=== PATIENT | female | born 1970 | race Two or more races ===

== ENCOUNTER 2016-05-30 16:35 | Emergency (ER) | payer OTHER ==
[~2016-05-30] VITALS: Ht 170.2 cm; Wt 77.1 kg
[~2016-05-30 16:35] MED LIST: ALBU18HF2 IH; ALBU8.5H2 IH; MOME13HF2 HHN
[2016-05-30] MEDS ORDERED: ALBUTEROL FS 2.5 MG/3 ML VIAL.NEB NEB ONE (17:00)
[2016-05-30] MEDS ORDERED: predniSONE 20 MG TABLET PO ONE (17:00)
[2016-05-30] MEDS ORDERED: IPRATROPIUM NEB FS 0.5 MG/2.5 ML AMPUL.NEB NEB ONE (17:00)
[2016-05-30] MEDS ORDERED: predniSONE 20 MG TABLET ONE (17:08)
[2016-05-30 17:19] LABS: BASOPHILS % (AUTO) 0.5 % (0.0-2.0); DIFF TOTAL % 100 %; EOSINOPHILS # (AUTO) 0.5 /CMM (0.0-0.7); EOSINOPHILS % (AUTO) 5.7 % (0.0-6.0); HEMATOCRIT 42 % (33-45); HEMOGLOBIN 14.4 g/dL (11.5-14.8); MEAN CORPUSCULAR HEMOGLOBIN 30 PG (26.0-33.0); MEAN CORPUSCULAR HGB CONC 35 g/dl (31.0-36.0); MEAN CORPUSCULAR VOLUME 88 fL (82-100); MONOCYTES # (AUTO) 0.6 /CMM (0.1-1.30); MONOCYTES % (AUTO) 6.6 % (2.0-12.0); NEUTROPHILS # (AUTO) 5.5 /CMM (1.8-8.9); NEUTROPHILS % (AUTO) 64.2 % (43.0-81.0); PLATELET COUNT (AUTO) 186 /CMM (150-450); RED BLOOD CELL COUNT(AUTO) 4.75 MIL/uL (4.0-5.2); WHITE BLOOD COUNT (AUTO) 8.6 K/uL (4.3-11.0)
[2016-05-30 17:32] LABS: CALCIUM, SERUM 8.7 mg/dL (8.5-10.1); CREATININE 0.6 mg/dL (0.6-1.3); POTASSIUM 3.9 mmol/L (3.5-5.1)
[2016-05-30] MEDS ORDERED: ALBUTEROL FS 2.5 MG/3 ML VIAL.NEB ONE (17:48)
[2016-05-30] MEDS ORDERED: IPRATROPIUM NEB FS 0.5 MG/2.5 ML AMPUL.NEB ONE (17:48)
[2016-05-30 18:06] LABS: INR 0.96 (0.87-1.13); PROTHROMBIN TIME 10.1 SECS (9.5-12.7)
[2016-05-30] MEDS ORDERED: IOHEXOL-350 100 ML VIAL IV ONE (18:32)
[2016-05-30] MEDS ORDERED: CT SWABBABLE VALVE TRANS SET 1 EA INFUS.SET MC ONE (18:32)
[2016-05-30] MEDS ORDERED: IV NS 0.9% 250 ML IV ONE (18:32)
[2016-05-30 19:56] VITALS: BP 110/74
== END 2016-05-30 19:56 | disposition home or self-care (01) ==
LOC: ER 16:36
DX: J20.9 Acute bronchitis, unspecified (principal); R91.8 Other nonspecific abnormal finding of lung field; J45.909 Unspecified asthma, uncomplicated; F17.200 Nicotine dependence, unspecified, uncomplicated; R79.1 Abnormal coagulation profile
CPT/HCPCS: 36415; 71010-TC; 80048-TC; 84703-TC; 85025-TC; 85730-TC; 93971-TC; A4606; J7050; Q9967; Z7610

== ENCOUNTER 2016-07-02 19:17 | Emergency (ER) | payer OTHER ==
[~2016-07-02] VITALS: Ht 167.6 cm; Wt 77.1 kg
[2016-07-02] MEDS ORDERED: predniSONE 20 MG TABLET ONE (20:12)
[2016-07-02] MEDS ORDERED: IPRATROPIUM NEB FS 0.5 MG/2.5 ML AMPUL.NEB ONE (20:20)
[2016-07-02] MEDS ORDERED: ALBUTEROL FS 2.5 MG/3 ML VIAL.NEB ONE (20:20)
[2016-07-02] MEDS ORDERED: predniSONE 20 MG TABLET PO ONE (20:30)
[2016-07-02] MEDS ORDERED: IPRATROPIUM NEB FS 0.5 MG/2.5 ML AMPUL.NEB NEB ONE (20:30)
[2016-07-02] MEDS ORDERED: ALBUTEROL FS 2.5 MG/3 ML VIAL.NEB NEB ONE (20:30)
[2016-07-02 21:17] VITALS: BP 101/61
== END 2016-07-02 21:19 | disposition home or self-care (01) ==
LOC: ER 19:19
DX: J45.901 Unspecified asthma with (acute) exacerbation (principal); Z87.891 Personal history of nicotine dependence
CPT/HCPCS: 94640; 99291; A4606; J7512; Z7610

== ENCOUNTER 2016-11-05 13:51 | Emergency (ER) | payer OTHER ==
[~2016-11-05] VITALS: Ht 172.7 cm; Wt 79.4 kg
--- NOTE | 2016-11-05 13:51 | NUR ---
BIB SELF, CC: ASTHMA EXACERBATION SINCE THIS MORNING, STATES SHE RAN OUT OF HER INHALER. NAD NOTD. PT AAO X4, AMB WITH STEADY GAIT. VSS. PENDING MD GAINES.
[2016-11-05] MEDS ORDERED: predniSONE 20 MG TABLET ONE (14:09)
[2016-11-05] MEDS ORDERED: ALBUTEROL FS 2.5 MG/3 ML VIAL.NEB ONE (14:10)
[2016-11-05] MEDS ORDERED: IPRATROPIUM NEB FS 0.5 MG/2.5 ML AMPUL.NEB ONE (14:10)
--- NOTE | 2016-11-05 14:15 | NUR ---
MEDICATIONS GIVEN ORDERED. RT AT BEDSIDE FOR TX
[2016-11-05] MEDS ORDERED: IPRATROPIUM NEB FS 0.5 MG/2.5 ML AMPUL.NEB NEB ONE (14:30)
[2016-11-05] MEDS ORDERED: ALBUTEROL FS 2.5 MG/3 ML VIAL.NEB NEB ONE (14:30)
[2016-11-05] MEDS ORDERED: predniSONE 20 MG TABLET PO ONE (14:30)
[2016-11-05] MEDS ORDERED: ALBUTEROL FS 2.5 MG/3 ML VIAL.NEB CONTNEB ONE (14:30)
[2016-11-05 15:14] VITALS: BP 111/66
== END 2016-11-05 15:18 | disposition home or self-care (01) ==
LOC: ER 13:52
DX: J45.901 Unspecified asthma with (acute) exacerbation (principal); F17.200 Nicotine dependence, unspecified, uncomplicated
CPT/HCPCS: 94644; 99285; A4606; J7512; Z7610

== ENCOUNTER 2019-04-30 20:24 | Emergency (ER) | payer MEDICAID, OTHER ==
[~2019-04-30] VITALS: Ht 170.2 cm; Wt 79.4 kg
[~2019-04-30 20:24] MED LIST changes: -ALBU8.5H2 IH; +ALBU8.5H8 IH
--- NOTE | 2019-04-30 20:39 | NUR ---
PT PRESENTED TO THE ER WITH A C/O LEFT SIDED CP THAT RADIATES DOWN THE LT ARM AND TO THE LT UPPER BACK. PT DESCRIBED THE PAIN SHARP AND INTERMITTENT. ONSET AT 0500 TODAY. PT AMBULATED TO ER 1 AND WAS PLACED ON THE MONITOR AND CONTINUOUS PULSE OX. PT IS ST @ 102.
[2019-04-30] MEDS ORDERED: ACETAMINOPHEN 325 MG TABLET PO ONE (21:00)
[2019-04-30] MEDS ORDERED: ACETAMINOPHEN ES 500 MG TABLET ONE (21:03)
[2019-04-30 21:05] LABS: BASOPHILS # (AUTO) 0.1 /CMM (0.0-0.2); BASOPHILS % (AUTO) 0.8 % (0.0-2.0); EOSINOPHILS % (AUTO) 2.2 % (0.0-6.0); HEMATOCRIT 44 % (33-45); HEMOGLOBIN 14.7 g/dL (11.5-14.8); LYMPHOCYTES # (AUTO) 2.1 /CMM (0.8-4.8); LYMPHOCYTES % (AUTO) 25.4 % (20.0-44.0); MEAN CORPUSCULAR HGB CONC 34 g/dl (31.0-36.0); MEAN CORPUSCULAR VOLUME 90 fL (82-100); MONOCYTES # (AUTO) 0.5 /CMM (0.1-1.30); MONOCYTES % (AUTO) 5.6 % (2.0-12.0); NEUTROPHILS # (AUTO) 5.5 /CMM (1.8-8.9); PLATELET COUNT (AUTO) 266 /CMM (150-450); RED BLOOD CELL COUNT(AUTO) 4.86 MIL/uL (4.0-5.2); WHITE BLOOD COUNT (AUTO) 8.3 K/uL (4.3-11.0)
--- NOTE | 2019-04-30 21:09 | NUR ---
PT AMBULATED TO THE BATHROOM WITH A STEADY GAIT.
--- NOTE | 2019-04-30 21:15 | NUR ---
PT AMBULATED BACK TO ER 1 WITH A STEADY GAIT.
[2019-04-30 21:19] LABS: ALANINE AMINOTRANSFERASE 105 U/L (12-78); ALBUMIN 3.7 g/dL (3.4-5.0); ALKALINE PHOSPHATASE 83 U/L (46-116); ASPARTATE AMINOTRANSFERASE 49 U/L (15-37); BILIRUBIN,DIRECT 0.1 mg/dL (0.0-0.2); BILIRUBIN,TOTAL 0.4 mg/dL (0.2-1.0); CALCIUM, SERUM 9.4 mg/dL (8.5-10.1); CARBON DIOXIDE 31 mmol/L (21-32); CHLORIDE 103 mmol/L (98-107); CREATININE 0.8 mg/dL (0.6-1.3); GLUCOSE 114 mg/dL (74-106); POTASSIUM 3.9 mmol/L (3.5-5.1); SODIUM SERUM 139 mmol/L (136-145); TOTAL PROTEIN, SERUM 7.6 g/dL (6.4-8.2); UREA NITROGEN, BLOOD 14 mg/dL (7-18)
--- NOTE | 2019-04-30 21:20 | NUR ---
URINE SAMPLE OBTAINED AND SENT TO LAB.
[2019-04-30 21:24] LABS: BILIRUBIN,URINE Negative (NEGATIVE); BLOOD, URINE Small Ery/uL (NEGATIVE); COLOR,URINE Yellow (YELLOW); KETONES,URINE Negative (NEGATIVE); LEUKOCYTE ESTERASE ,URINE Moderate (NEGATIVE); NITRITE, URINE Negative (NEGATIVE); PROTEIN,URINE Negative (NEGATIVE); UGLUCOSE Negative (NEGATIVE); UROBILINOGEN,URINE 0.2 EU/dL (0.2)
--- NOTE | 2019-04-30 21:25 | NUR ---
XRAY IN PROGRESS AT THE BEDSIDE.
[2019-04-30 21:27] LABS: APPEARANCE,URINE HAZY (CLEAR)
--- NOTE | 2019-04-30 21:28 | NUR ---
PT IS C/O FEELING SOB WITH INTERMITTENT LT SIDED SHARP, STABBING CHEST PAIN.
[2019-04-30 21:37] LABS: BACTERIA,URINE Many /HPF (None Seen); SQUAMOUS EPITHELIAL CELL,UR Moderate /HPF (None Seen)
--- NOTE | 2019-04-30 22:15 | NUR ---
Dylon MOODY PA-C IS AT THE BEDSIDE SPEAKING TO THE PT.
--- NOTE | 2019-04-30 23:25 | NUR ---
PT APPEARS TO BE RESTING COMFORTABLY WITH NO S/S OF PAIN OR DISTRESS. VSS.
--- NOTE | 2019-05-01 01:00 | NUR ---
Patient discharged to home in stable condition. Written and verbal after care instructions given. Patient verbalizes understanding of instruction AND RX. IV removed. Catheter intact and site benign. Pressure and 4x4 applied to site. No bleeding noted. PT AMBULATED OUT WITH A STEADY GAIT. VSS
[2019-05-01 01:40] VITALS: BP 130/78
== END 2019-05-01 00:57 | disposition home or self-care (01) ==
LOC: ER 20:28
DX: N39.0 Urinary tract infection, site not specified (principal); R07.89 Other chest pain; J45.909 Unspecified asthma, uncomplicated; F17.200 Nicotine dependence, unspecified, uncomplicated; F41.9 Anxiety disorder, unspecified; Z79.899 Other long term (current) drug therapy
CPT/HCPCS: 36415; 71045-TC; 80048-TC; 80076-TC; 81000-TC; 83690-TC; 84484-TC; 84703-TC; 85025-TC; 85378-TC; 87086-TC

== ENCOUNTER 2020-04-01 23:55 | Emergency (ER) | payer MEDICAID ==
[~2020-04-01] VITALS: Ht 170.2 cm; Wt 79.4 kg
--- NOTE | 2020-04-02 00:25 | NUR ---
PT CAME TO THE ER C/O SORE THROAT AND MIGRAINE X6 DAYS. PT ALSO ENDORSES NON RADIATIONG L SIDED CP X8 HRS. -SOB. PT CONNECTED TO THE POLE CLASSIFIER AND POX
--- NOTE | 2020-04-02 00:29 | NUR ---
OBSTETRICIAN AND GYNAECOLOGIST AT BEDSIDE FOR BLOOD DRAW
[2020-04-02] MEDS ORDERED: KETOROLAC TROMETHAMINE INJ 60 MG/2 ML VIAL IM ONE ×2 (00:30→00:34)
--- NOTE | 2020-04-02 00:30 | NUR ---
WAIVER OBTAINED FROM PT
[2020-04-02 00:38] LABS: BASOPHILS % (AUTO) 0.6 % (0.0-2.0); EOSINOPHILS % (AUTO) 3.3 % (0.0-6.0); HEMATOCRIT 45 % (33-45); LYMPHOCYTES # (AUTO) 2.4 /CMM (0.8-4.8); MEAN CORPUSCULAR HGB CONC 34 g/dl (31.0-36.0); MEAN CORPUSCULAR VOLUME 92 fL (82-100); MONOCYTES # (AUTO) 0.4 /CMM (0.1-1.30); MONOCYTES % (AUTO) 6.7 % (2.0-12.0); NEUTROPHILS # (AUTO) 3.3 /CMM (1.8-8.9); NEUTROPHILS % (AUTO) 51.4 % (43.0-81.0); PLATELET COUNT (AUTO) 267 /CMM (150-450); RED BLOOD CELL COUNT(AUTO) 4.87 MIL/uL (4.0-5.2); WHITE BLOOD COUNT (AUTO) 6.4 K/uL (4.3-11.0)
--- NOTE | 2020-04-02 00:40 | NUR ---
XRAY AT BEDSIDE
--- NOTE | 2020-04-02 00:40 | NUR ---
STREP SWAB SENT TO LAB
[2020-04-02 00:49] LABS: CALCIUM, SERUM 8.9 mg/dL (8.5-10.1); CARBON DIOXIDE 29 mmol/L (21-32); CHLORIDE 104 mmol/L (98-107); CREATININE 0.7 mg/dL (0.6-1.3); GLUCOSE 108 mg/dL (74-106); POTASSIUM 3.7 mmol/L (3.5-5.1); SODIUM SERUM 139 mmol/L (136-145); UREA NITROGEN, BLOOD 14 mg/dL (7-18)
[2020-04-02 00:55] LABS: ALANINE AMINOTRANSFERASE 40 U/L (12-78); ALBUMIN 3.7 g/dL (3.4-5.0); ALKALINE PHOSPHATASE 80 U/L (46-116); ASPARTATE AMINOTRANSFERASE 20 U/L (15-37); BILIRUBIN,DIRECT 0.1 mg/dL (0.0-0.2); BILIRUBIN,TOTAL 0.2 mg/dL (0.2-1.0); TOTAL PROTEIN, SERUM 7.8 g/dL (6.4-8.2)
[2020-04-02 01:25] LABS: D-DIMER 0.31 mg/L(FEU (0.17-0.50)
--- NOTE | 2020-04-02 01:54 | NUR ---
Patient discharged to home in stable condition. Written and verbal after care instructions given. Patient verbalizes understanding of instruction.pt. ambulatory with a steady gait
[2020-04-02 01:55] VITALS: BP 127/86
== END 2020-04-02 01:56 | disposition home or self-care (01) ==
LOC: ER 23:58
DX: R07.89 Other chest pain (principal); J32.9 Chronic sinusitis, unspecified; G43.909 Migraine, unspecified, not intractable, without status migrainosus; J45.909 Unspecified asthma, uncomplicated; Z79.899 Other long term (current) drug therapy
CPT/HCPCS: 71045; 80048; 80076; 84484; 85025; 85378; 85730; 87880; 93005; 96372; 99285; J1885; 86403-TC; 87070-TC